=== PATIENT | female | born 1980 | race Hispanic/Latino ===

== ENCOUNTER 2024-04-05 19:32 | Emergency (ER) | payer SELFPAY ==
[~2024-04-05] VITALS: Ht 170.2 cm; Wt 99.8 kg
[2024-04-05 19:49] VITALS: PULSE 90; RESP 18; TEMP 99
[2024-04-05] MEDS: SODIUM CHLORIDE 0.9% 1000ML 1,000 ML IV STA (20:19)
[2024-04-05] MEDS: ONDANSETRON HCL INJ 2MG/ML 2ML 2 MG/ML VIAL IV STA (20:19)
[2024-04-05 20:32] LABS: BASOPHILS % 0.9 % (0.0-1.0); EOSINOPHILS # (AUTO) 0.3 (0.0-0.4); EOSINOPHILS % 6.1 % (0.0-6.0); HEMATOCRIT 33.2 % (34.2-44.1); HEMOGLOBIN 9.9 g/dL (12.0-16.0); LYMPHOCYTES # (AUTO) 1.4 (1.0-3.2); LYMPHOCYTES % 33.6 % (18.0-39.1); MEAN CORPUSCULAR HEMOGLOBIN 26.8 pg (28-32); MEAN CORPUSCULAR HGB CONC 29.8 g/dL (31-35); MEAN CORPUSCULAR VOLUME 89.7 fL (81-99); MONOCYTES # (AUTO) 0.3 (0.2-0.8); MONOCYTES % 7.7 % (4.4-11.3); NEUTROPHILS # (AUTO) 2.2 (2.1-6.9); NEUTROPHILS % 51.7 % (38.7-80.0); PLATELET COUNT 252 x10e3/uL (140-360); RED CELL DISTRIBUTION WIDTH 17.2 % (11.7-14.4); WHITE BLOOD COUNT 4.26 x10e3/uL (4.8-10.8)
[2024-04-05] MEDS ORDERED: IOPAMIDOL 370 MG/ML 100 ML INFUS..BTL INJ ONE (20:44)
[2024-04-05 20:50] LABS: ALBUMIN 4.1 g/dL (3.5-5.0); ALBUMIN/GLOBULIN RATIO 1.1 (0.8-2.0); ANION GAP 15.1 mmol/L (8-16); BILIRUBIN,TOTAL 0.3 mg/dL (0.2-1.2); CALCIUM 8.7 mg/dL (8.4-10.2); CREATININE, SERUM 0.86 mg/dL (0.57-1.11); TOTAL PROTEIN 7.9 g/dL (6.5-8.1)
[2024-04-05 21:00] LABS: POTASSIUM 3.1 mmol/L (3.5-5.1)
[2024-04-05] MEDS: KETOROLAC TROMETHAMINE 30 MG/ML VIAL IV STA (21:01)
[2024-04-05] MEDS: Morphine 4mg INJECTION 4 MG/ML INJ IV STA (21:31)
[2024-04-05 22:34] LABS: PREGNANCY TEST, URINE NEGATIVE (NEGATIVE)
[2024-04-05 22:35] LABS: AMPHETAMINES SCREEN,URINE NEGATIVE (NEGATIVE); BENZODIAZEPINES SCREEN,URINE NEGATIVE (NEGATIVE); CANNABINOIDS SCREEN,URINE NEGATIVE (NEGATIVE); OPIATES SCREEN,URINE POSITIVE (NEGATIVE); PHENCYCLIDINE SCREEN,URINE NEGATIVE (NEGATIVE)
[2024-04-05 22:36] LABS: CLARITY,URINE CLEAR (CLEAR); COLOR,URINE YELLOW (YELLOW); METHADONE SCREEN, URINE POSITIVE (NEGATIVE)
[2024-04-05 22:37] LABS: BILIRUBIN,URINE NEGATIVE (NEGATIVE); GLUCOSE, URINE NEGATIVE (NEGATIVE); KETONES,URINE NEGATIVE (NEGATIVE); LEUKOCYTE ESTERASE ,URINE NEGATIVE (NEGATIVE); NITRITE,URINE NEGATIVE (NEGATIVE); PH,URINE 5.5 (5 - 7); PROTEIN,URINE DIPSTICK NEGATIVE (NEGATIVE); URINE UROBILINOGEN 0.2 mg/dL (0.2 - 1)
[2024-04-05 22:51] LABS: BACTERIA,URINE MODERATE /HPF; EPITHELIAL CELLS,URINE FEW /LPF; RBC,URINE 0-5 /HPF (0-5); WBC,URINE (MAN) 0-5 /HPF (0-5)
[2024-04-05] MEDS: METOCLOPRAMIDE HCL 10 MG/2ML VIAL IV STA (23:33)
[2024-04-05 23:43] VITALS: BP 126/89; O2SAT 100
== END 2024-04-05 23:45 | disposition home or self-care (01) ==
LOC: ER 19:42
DX: R50.9 Fever, unspecified (principal); R10.32 Left lower quadrant pain; R11.2 Nausea with vomiting, unspecified; K76.0 Fatty (change of) liver, not elsewhere classified
CPT/HCPCS: 36415; 74177; 80053; 80307; 81001; 81025; 83690; 85025; 99284; J1885; J2270; J2405; J2765; J7030; Q9967